=== PATIENT | female | born 1960 | race Caucasian/White ===

== ENCOUNTER 2017-12-06 20:02 | Emergency (ER) | payer OTHER ==
[~2017-12-06] VITALS: Ht 165.1 cm; Wt 82.3 kg
[~2017-12-06 20:02] MED LIST: AUGM875 PO; LORT5TAB PO; ZOCO40TA PO
[2017-12-06 20:12] VITALS: BP 133/79; PULSE 68; RESP 19; TEMP 97.7; O2SAT 97
[2017-12-06 20:51] VITALS: BP 139/84; PULSE 58; RESP 16; O2SAT 97
--- NOTE | 2017-12-06 21:07 | PD ---
HPI Chief Complaint: GI Complaint Time Seen by Provider: 20:57 Travel History International Travel<30 days: No Contact w/Intl Traveler<30days: No Traveled to known affect area: No History of Present Illness HPI The patient is a 57-year-old female that complains of pain in the right lower quadrant around noon. She does have intermittent nausea and vomited 3 times. She denies any diarrhea or fever. She denies any dysuria, frequency or urgency. She denies any cough. She has not had an appetite and has not eaten since morning today. She has never had any abdominal surgeries and still has her appendix, uterus and gallbladder. PFSH Past Medical History Cancer: Yes (BLADDER CANCER, BIOPSY REMOVAL,SCHEDULED FOR RECHECK ON THE ) Cardiovascular Problems: No High Cholesterol: Yes Diabetes: No Glaucoma: No Hepatitis: No Hiatal Hernia: No Hypertension: No Medical other: No Respiratory: No Thyroid Disease: No Tetanus Vaccination: < 5 Years Influenza Vaccination: No ?: Not Menopausal: Yes Past Surgical History Abdominal Surgery: No Cardiac Surgery: No Ear Surgery: No Endocrine Surgery: No Eye Surgery: No Genitourinary Surgery: Yes (BLADDER POLYP REMOVAL 2008) Gynecologic Surgery: Yes (1987 RT DUCTECTOMY, 1987 LT BREAST LUMPECTOMY) Neurologic Surgery: No Oral Surgery: Yes (1965 T&A) Pacemaker: No Thoracic Surgery: No Other Surgery: Yes Social History Alcohol Use: No Tobacco Use: No Substance Use: No Allergies-Medications (Allergen,Severity, Reaction): Coded Allergies: No Known Allergies (Verified Adverse Reaction, Unknown, 12/06/17) Reported Meds & Prescriptions Reported Meds & Active Scripts Active Reported Lortab 5/500 (Acetaminophen/Hydrocodone Bitart) 5 Mg/500 Mg Tab 1-2 Tab PO Q4HPRN FOR PAIN Augmentin (Amoxicillin/Clavulanate Potassium) 875 Mg Tab 875 Mg PO Q12 10 Days Zocor (Simvastatin) 40 Mg Tab 40 Mg PO HS Physical Exam Narrative GENERAL: The patient is alert, oriented 3 and slight apparent distress with her abdominal discomfort. Her vital signs are normal. SKIN: Focused skin assessment warm/dry. HEAD: Atraumatic. Normocephalic. EYES: Pupils equal and round. No scleral icterus. No injection or drainage. ENT: No nasal bleeding or discharge. Mucous membranes pink and moist. NECK: Trachea midline. No JVD. CARDIOVASCULAR: Regular rate and rhythm. No murmur appreciated. RESPIRATORY: No accessory muscle use. Clear to auscultation. Breath sounds equal bilaterally. GASTROINTESTINAL: Abdomen soft, with tenderness to direct palpation in the midline epigastrium and periumbilical area as well as some tenderness in the right lower quadrant, nondistended. Hepatic and splenic margins not palpable. No guarding or rebound is present. MUSCULOSKELETAL: No obvious deformities. No clubbing. No cyanosis. No edema. NEUROLOGICAL: Awake and alert. No obvious cranial nerve deficits. Motor grossly within normal limits. Normal speech. PSYCHIATRIC: Appropriate mood and affect; insight and judgment normal. Pelvic exam is deferred, her manager travel will do this tomorrow. Data Data Last Documented VS Vital Signs Date Time Temp Pulse Resp B/P (MAP) Pulse Ox O2 Delivery O2 Flow Rate FiO2 12/06/17 21:19 98 Room Air 12/06/17 20:51 58 16 12/06/17 20:12 97.7 Orders Orders Complete Blood Count With Diff (12/06/17 21:03) Comprehensive Metabolic Panel (12/06/17 21:03) Lipase (12/06/17 21:03) Urinalysis - C+S If Indicated (12/06/17 21:03) Ct Abd/Pel W Iv Contrast(Rout) (12/06/17 21:03) Iv Access Insert/Monitor (12/06/17 21:03) Ecg Monitoring (12/06/17 21:03) Oximetry (12/06/17 21:03) Sodium Chloride 0.9% Flush (Ns Flush) (12/06/17 21:15) Ondansetron Inj (Zofran Inj) (12/06/17 21:15) Sodium Chlor 0.9% 1000 Ml Inj (Ns 1000 M (12/06/17 21:15) Iohexol 350 Inj (Omnipaque 350 Inj) (12/06/17 21:37) Labs Laboratory Tests Test 12/06/17 21:00 White Blood Count 11.1 TH/MM3 Red Blood Count 4.70 MIL/MM3 Hemoglobin 14.5 GM/DL Hematocrit 42.9 % Mean Corpuscular Volume 91.4 FL Mean Corpuscular Hemoglobin 30.9 PG Mean Corpuscular Hemoglobin Concent 33.8 % Red Cell Distribution Width 12.4 % Platelet Count 257 TH/MM3 Mean Platelet Volume 9.0 FL Neutrophils (%) (Auto) 83.2 % Lymphocytes (%) (Auto) 11.9 % Monocytes (%) (Auto) 3.9 % Eosinophils (%) (Auto) 0.3 % Basophils (%) (Auto) 0.7 % Neutrophils # (Auto) 9.3 TH/MM3 Lymphocytes # (Auto) 1.3 TH/MM3 Monocytes # (Auto) 0.4 TH/MM3 Eosinophils # (Auto) 0.0 TH/MM3 Basophils # (Auto) 0.1 TH/MM3 CBC Comment AUTO DIFF Blood Urea Nitrogen 10 MG/DL Creatinine 0.79 MG/DL Random Glucose 120 MG/DL Total Protein 7.5 GM/DL Albumin 3.8 GM/DL Calcium Level 9.0 MG/DL Alkaline Phosphatase 90 U/L Aspartate Amino Transf (AST/SGOT) 18 U/L Alanine Aminotransferase (ALT/SGPT) 32 U/L Total Bilirubin 0.5 MG/DL Sodium Level 138 MEQ/L Potassium Level 3.8 MEQ/L Chloride Level 104 MEQ/L Carbon Dioxide Level 22.7 MEQ/L Anion Gap 11 MEQ/L Estimat Glomerular Filtration Rate 75 ML/MIN Lipase 132 U/L MDM Medical Decision Making Medical Screen Exam Complete: Yes Emergency Medical Condition: Yes Medical Record Reviewed: Yes Interpretation(s) The CT abdomen/pelvis with IV contrast shows a 9 cm mass in the retro-uterine position which is suspicious for an ovarian neoplasm. The CBC the CBC shows white count 11,100 with 83% neutrophils and is otherwise normal. The complete metabolic profile is normal. The lipase is normal. 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 She will be given tramadol and Zofran for pain and nausea. She needs to call her manager travel first thing in the morning. Diagnosis Primary Impression: Ovarian mass, right Additional Instructions: As we discussed, call your manager travel tomorrow morning. The tramadol as the pain pill and it is one every 4-6 hours as needed. Zofran is for nausea and it is every 6 hours as needed. Med/Other Pt SpecificInfo: Prescription(s) given Scripts Ondansetron (Zofran) 4 Mg Tab 4 MG PO Q6HR Y for NAUSEA OR VOMITING, #30 TAB 0 Refills Prov: Govind Bravo MD 12/06/17 Tramadol (Tramadol) 50 Mg Tab 50 MG PO Q4H Y for PAIN, #30 TAB 0 Refills Prov: Govind Bravo MD 12/06/17 Disposition: 01 DISCHARGE HOME Condition: Stable Govind Bravo MD Dec 06, 2017 21:07
[2017-12-06] MEDS ORDERED: SODIUM CHLORIDE 0.9% FLUSH 10 ML FLUSH IV FLUSH PRN (21:15)
[2017-12-06] MEDS ORDERED: ONDANSETRON HCL 4 MG/2 ML VIAL IV ONE (21:15)
[2017-12-06] MEDS: SODIUM CHLOR 0.9% 1000 ML INJ 1,000 ML IV SCH ×2 (21:15→21:45)
[2017-12-06 21:19] VITALS: O2SAT 98
[2017-12-06 21:28] LABS: AUTOMATED NEUTROPHIL # 9.3 TH/MM3 (1.8-7.7); BASOPHIL # 0.1 TH/MM3 (0-0.2); BASOPHIL % 0.7 % (0.0-2.0); EOSINOPHIL % 0.3 % (0.0-4.0); HEMATOCRIT 42.9 % (35.0-46.0); HEMOGLOBIN 14.5 GM/DL (11.6-15.3); LYMPH % 11.9 % (9.0-44.0); LYMPHOCYTE # 1.3 TH/MM3 (1.0-4.8); MEAN CELL VOLUME 91.4 FL (80.0-100.0); MEAN CORPUSCULAR HEMOGLOBIN 30.9 PG (27.0-34.0); MEAN CORPUSCULAR HGB CONC 33.8 % (32.0-36.0); MONO % 3.9 % (0.0-8.0); MONOCYTE # 0.4 TH/MM3 (0-0.9); NEUT % 83.2 % (16.0-70.0); PLATELET COUNT 257 TH/MM3 (150-450); RED CELL DISTRIBUTION WIDTH 12.4 % (11.6-17.2); WHITE BLOOD COUNT 11.1 TH/MM3 (4.0-11.0)
[2017-12-06] MEDS ORDERED: IOHEXOL 350 MG/ML 10 ML VIAL (for RAD DIAG) IVCONTRAST ONE (21:37)
[2017-12-06 21:38] LABS: CHLORIDE 104 MEQ/L (98-107); SODIUM (NA) 138 MEQ/L (136-145)
[2017-12-06 21:42] LABS: ALBUMIN 3.8 GM/DL (3.4-5.0); BICARBONATE 22.7 MEQ/L (21.0-32.0); BLOOD UREA NITROGEN 10 MG/DL (7-18); GLUCOSE,RANDOM 120 MG/DL (74-106); LIPASE 132 U/L (73-393)
[2017-12-06 21:44] LABS: ALT (GPT) 32 U/L (10-53); AST (GOT) 18 U/L (15-37); CREATININE 0.79 MG/DL (0.50-1.00); GLOMERULAR FILTRATION RATE 75 ML/MIN (>89)
--- NOTE | 2017-12-06 21:44 | RADRPT ---
EXAM DATE/TIME: 12/06/2017 21:18 [facility] COMPARISON: No previous studies available for comparison. INDICATIONS : Right lower quadrant pain. Nausea. Vomiting. Evaluate for appendicitis. IV CONTRAST: 100 cc Omnipaque 350 (iohexol) IV ORAL CONTRAST: No oral contrast ingested. RADIATION DOSE: 16.23 CTDIvol (mGy) MEDICAL HISTORY : Carcinoma, bladder. SURGICAL HISTORY : Left lumpectomy. Right ductectomy. ENCOUNTER: Initial ACUITY: 1 day PAIN SCALE: 9/10 LOCATION: Right lower quadrant TECHNIQUE: Volumetric scanning of the abdomen and pelvis was performed. Using automated exposure control and ad justment of the mA and/or kV according to patient size, radiation dose was kept as low as reasonably achievable to obtain optimal diagnostic quality images. DICOM format image data is available electro nically for review and comparison. FINDINGS: LOWER LUNGS: The visualized lower lungs are clear. LIVER: Homogeneous density without lesion. There is no dilation of the biliary tree. No calcified gallston es. SPLEEN: Normal size without lesion. PANCREAS: Within normal limits. KIDNEYS: Normal in size and shape. There is no mass, stone or hydronephrosis. ADRENAL GLANDS: Within normal limits. VASCULAR: There is no aortic aneurysm. BOWEL/MESENTERY: The stomach, small bowel, and colon demonstrate no acute abnormality. There is no free intraperitone al air or fluid. Normal-appearing air-filled adnexa is noted. ABDOMINAL WALL: Within normal limits. RETROPERITONEUM: There is no lymphadenopathy. BLADDER: No wall thickening or mass. REPRODUCTIVE: A complex solid mass is identified posterior to the uterus which appears to be originating from the r ight adnexa. It measures 9.2 x 6.6 x 6.4 cm in size. INGUINAL: There is no lymphadenopathy or hernia. MUSCULOSKELETAL: Within normal limits for patient age. CONCLUSION: 9 cm complex retrouterine mass which appears to originate from the right adnexa and is suspicious for an ovarian neoplasm. Normal appearing appendix without evidence of acute appendicitis. Raghu Simms MD on December 06, 2017 at 21:37 Board Certified Radiologist. This report was verified electronically.
[2017-12-06 21:46] LABS: TOTAL BILIRUBIN ADULT 0.5 MG/DL (0.2-1.0); TOTAL PROTEIN 7.5 GM/DL (6.4-8.2)
[2017-12-06 21:47] LABS: ALKALINE PHOSPHATASE 90 U/L (45-117)
[2017-12-06] MEDS ORDERED: TRAM50TA PO (21:56)
[2017-12-06] MEDS ORDERED: ZOFR4TAB PO (21:56)
[2017-12-06 22:04] VITALS: BP 156/83
[2017-12-06] MEDS ORDERED: traMADol HCL 50 MG TAB PO ONE (22:15)
[2017-12-06] MEDS ORDERED: IBUPROFEN 600 MG TAB PO ONE (22:30)
[2017-12-08] MEDS ORDERED: HYDR-3516 PO (14:36)
[2017-12-08] MEDS ORDERED: AUGM875T3 PO (14:36)
[2017-12-08] MEDS ORDERED: SIMV40TA PO (14:36)
== END 2017-12-06 22:04 | disposition home or self-care (01) ==
LOC: PHED 20:02
DX: N83.9 Noninflammatory disorder of ovary, fallopian tube and broad ligament, unspecified (principal)
CPT/HCPCS: 74177; 80053; 83690; 85025; 96361; 96374; 99285; J2405; J7030; Q9967

== ENCOUNTER → 2017-12-09 | Day surgery (SDC) | payer OTHER ==
[~2017-12-09] VITALS: Ht 165.1 cm; Wt 80.3 kg
[~2017-12-09] MED LIST changes: +*ONDANSETRON 4 MG VIAL PERIprocedural Use ONLY ONE; +*PROMETHAZINE 25 MG/ML VIAL PERIprocedural use ONLY ONE; +ACETAMINOPHEN 1000 MG/100 ML 0 ML IV ONE; +ACETAMINOPHEN 1000 MG/100 ML 100 ML IV ONE; +APREPITANT 40 MG CAP PO PRN; -AUGM875 PO; +AUGM875T3 PO; +BUPIVACAINE HCL PF 0.25% 30 ML VIAL ONE; +BUPIVACAINE HCL PF 0.5% 30 ML VIAL ONE; +BUPIVACAINE/EPINEPHRINE 0.25% PF 30 ML VIAL ONE; +CHLORHEXIDINE GLUCONATE 2 % 1 PACK (2 CLOTHS) TOPICAL PRN; +DEXAMETHASONE SOD PHOS 4 MG/ML VIAL IV ONE; +DO NOT ADM ANY ANTICOAGULANT DRUGS PRN; +GLYCOPYRROLATE 1 MG/5 ML SYRINGE IV PUSH ONE; +HYDR-3516 PO; +HYDROmorphone HCL PF 2 MG/ML VIAL IV PUSH PRN; +IBUPROFEN 600 MG TAB PO PRN; +KETOROLAC TROMETHAMINE 30 MG/ML (IVP) VIAL IVP PRN; +LACTATED RINGER'S 1000 ML INJ 1,000 ML IV SCH; +LACTATED RINGER'S 1000 ML INJ 2,000 ML IV ONE; +LACTATED RINGER'S 1000 ML IV PRN; +LIDOCAINE HCL 1% PF 5 ML SYRINGE OTHER ONE; -LORT5TAB PO; +LORazepam 0.5 MG TAB PO PRN; +METOPROLOL TARTRATE 25 MG TAB PO PRN; +MIDAZOLAM HCL 2 MG/2 ML VIAL ONE; +NEOSTIGMINE 5 MG/5 ML SYRINGE IV PUSH ONE; +ONDANSETRON HCL 4 MG/2 ML VIAL IV ONE; +ONDANSETRON HCL 4 MG/2 ML VIAL IVP PRN; +ONDANSETRON INJ 8 MG in DEXTROSE 5% IN WATER INJ 50 ML IV PUSH PRN; +PHENYLEPH/NS 1000 MCG/10 ML SYR IV ONE; +POVIDONE IODINE 5% (ANTISEPSIS KIT) 4 APPLICATIONS EACH NARE PRN; +PROMETHAZINE INJ 25 MG/ML VIAL IM PRN; +PROPOFOL 200 MG/20 ML AMP IV ONE; +ROCURONIUM INJ 50 MG/5 ML SYRINGE IV PUSH ONE; +SIMV40TA PO; +SODIUM CHLORID 0.9% 500 ML IV PRN; +SODIUM CHLORIDE 0.9% FLUSH 10 ML FLUSH IV FLUSH PRN; +SODIUM CHLORIDE 0.9% FLUSH 10 ML FLUSH IV FLUSH SCH; +TRAM50TA PO; -ZOCO40TA PO; +ZOFR4TAB PO; +ceFAZolin 2 GM PREMIX 50 ML IV SCH; +diphenhydrAMINE HCL 25 MG CAP PO PRN; +ePHEDrine/NS 25 MG/5 ML SYRINGE IV ONE; +oxyCODONE/ACETAMINOPHEN 5 MG/325 MG TAB PO PRN
[2017-12-09 11:35] VITALS: BP 100/60; PULSE 67; RESP 16; TEMP 98.6; O2SAT 94
--- NOTE | 2017-12-09 21:12 | EKG ---
Date Performed: 12/09/2017 Time Performed: 06:08:04 PTAGE: 57 years EKG: Sinus rhythm . Anteroseptal T wave changes are nonspecific Borderline ECG Compared to prior tracing no significant change DOCTOR: Joceline Trujillo Interpretating Date/Time 12/09/2017 21:11:18
--- NOTE | 2017-12-10 06:50 | MP ---
cc: RAJINDER NARVAEZ DATE OF SURGERY 12/09/2017 DATE OF 1960 PREOPERATIVE DIAGNOSIS Patient with acute abdominal pain, suspect ovarian torsion right adnexa. POSTOPERATIVE DIAGNOSIS Patient with acute abdominal pain, suspect ovarian torsion right adnexa. Frozen section confirmed benign right ovarian tissue. PROCEDURE Operative laparoscopy with right salpingo-oophorectomy. SURGEON Rajinder Narvaez MD ANESTHESIA General with endotracheal intubation ESTIMATED BLOOD LOSS 25 cc DRAINS Rosa to gravity during the procedure only. OPERATIVE FINDINGS The patient had a small mid position uterus, normal left tube and ovary and large hemorrhagic torsed right ovary. No other abnormalities were present within the pelvis. INDICATIONS FOR THE PROCEDURE The patient presented to the emergency department with an acute onset of lower abdominal pelvic pain and was seen in the emergency department on December 06. CT scan obtained revealed a complex posterior right-sided ovarian mass. 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 The patient was seen by me on December 07. Findings were suspicious for torsion, although the patient was stable and was elected for operative laparoscopy. PROCEDURE DESCRIPTION The patient was taken to the operating room. She received 2 grams of Ancef prophylactically. She underwent general anesthesia with endotracheal intubation. She was carefully positioned in the dorsolithotomy position using Mika stirrups on the lower extremities. She had sequentials placed for VTE prophylaxis. She was prepped and draped. A Rosa catheter was inserted by sterile technique. Time-out was conducted agreed by all present in the room. Cervix was easily visualized and a Hulka tenaculum is used to manipulate the cervix. During the procedure, the retractor was removed. Gloves were changed. The abdomen was examined. The umbilical port site was chosen first. Quarter percent plain Marcaine was injected and a small stab wound was made to accommodate a 5-mm visible port trocar. The visible port trocar attached to a 5-mm laparoscope was used to gain entry into the peritoneal cavity. The peritoneum was then insufflated at low pressure and then the patient was placed in steep Trendelenburg positioning for anatomic evaluation. Examination of the pelvis was as noted above. The suprapubic port was placed using a 12-mm trocar and then a right lateral port was placed using a 5-mm trocar. The pedicle was twisted and the Harmonic scalpel was used to secure the pedicle on the right and this allowed removal of the fallopian tube and ovary. The operative site was dry. There is no evidence of bleeding or hematoma. At this point, the adnexa was placed into a large EndoCatch bag due to the size of the tumor and the appearance. The right ovary was solid and thick. There is no fluid component. The ovary was brought through the 12-mm trocar incision which had to be extended to 4-cm. A segment was removed and sent as a frozen section and then followed with several other smaller segments to the pathology department. Continuation of the removal of the ovary required extracorporeal morcellation with sharp scissors placing careful attention to keep the contents within the EndoCatch bag not exposing it to the patient's abdominal cavity or incision site. Once the ovary was sizable to remove through the incision, it was removed intact with the bag and the remainder of the tissue retrieved. This all sent in formalin as a permanent section. A phone conversation with Dr. Chanelle Simons of the pathology department demonstrated benign ovarian tissue. Re-examination of the operative site after removal of the adnexa proved stable. Irrigation and aspiration of the fluid in the pelvis was accomplished. Again hemostasis was noted. At that point, the pneumoperitoneum was decompressed and the trocar sites were removed. The suprapubic incision was closed at the level of fascia with a running suture of 0 Vicryl and then closing the subcutaneous space and then the skin incisions were closed with a 4-0 Monocryl in a subcuticular fashion. Steri-Strips were placed over the incision. The Rosa catheter was removed along with the Hulka tenaculum. No vaginal bleeding was noted. Clear urine approximately 200 cc's was documented in the collection bag. At the completion of the case, the patient was stable. She was taken to the recovery room, extubated on room air. The final count was correct. MD CARLOS Fernandez/SVETLANA /11:09 AM /6:28 AM
== END | disposition home or self-care (01) ==
LOC: HSDC 05:06
PROVIDERS: ATTEND Obstetrics & Gynecology
DX: N83.9 Noninflammatory disorder of ovary, fallopian tube and broad ligament, unspecified (principal); R94.39 Abnormal result of other cardiovascular function study
CPT/HCPCS: 00840; 58661; 88305; 88307; 88331; 93005; 94150; J0131; J0690; J1100; J1885; J2250; J2370; J2405; J2550; J2710; J3010; J7120; J8501